=== PATIENT | female | born 1955 | race Caucasian/White ===

== ENCOUNTER 2016-12-04 21:12 | Emergency (ER) | payer OTHER ==
[~2016-12-04 21:12] MED LIST: PREDNISONE 20MG20 MG PO
[2016-12-04 21:23] VITALS: BP 140/71
[2016-12-04] MEDS ORDERED: NAPROXEN500 M2 PO (21:46)
[2016-12-04] MEDS ORDERED: CYCLOBENZAPRINE10 M1 PO (21:46)
--- NOTE | 2016-12-04 22:07 | ED NECK/BACK PAIN COMPLAINT ---
History of Present Illness General Chief Complaint: Neck/Upper Back Pain/Injury Stated Complaint: NECK PAIN Source: patient Exam Limitations: no limitations Vital Signs & Intake/Output Vital Signs & Intake/Output Vital Signs Date Time Temp Pulse Resp B/P Pulse O2 O2 Flow FiO2 Ox Delivery Rate 12/04 2123 79 20 140/71 99 ED Intake and Output 12/05 0000 12/04 1200 Intake Total Output Total Balance Patient 115 lb Weight Allergies Coded Allergies: NO KNOWN ALLERGIES (05/27/12) Reconcile Medications Cyclobenzaprine HCl 10 MG TABLET 1 TAB PO TID MUSCLE RELAXER (Reported) Meloxicam (Mobic) 15 MG TABLET 1 TAB PO DAILY PRN PAIN/INFLAMMATION Naproxen 500 MG TABLET 1 TAB PO BID PAIN (Reported) Tramadol HCl 50 MG TABLET 1 TAB PO BIDP PRN PAIN Triage Note: PER PT STIFF NECK ONLY ON RT X WEEKS, DENIES INJURY NO NEURO DEFICITS UNABLE TO TURN Triage Nurses Notes Reviewed? yes Onset: Gradual Duration: constant Timing: recent history Quality/Severity: moderate Location: paraspinous muscles Radiation: none Method of Injury: unknown HPI: Patient is a 61-year-old female who presents to emergency room with a two-week history of constant pain to the right lateral neck region. Pain is localized no radiating extremity paresthesia weakness or numbness. Patient denies any mechanism injury. Patient states that movement of her neck over her right shoulder makes worse. Patient is taking ibuprofen with relief of symptoms. Denies any fever chills headache. Denies any neck surgeries or significant past history of neck pain (CAREN MAC) Past History Travel History Traveled to [place] past 21 day No Medical History Any Pertinent Medical History? none Neurological: NONE EENT: NONE Cardiovascular: NONE Respiratory: NONE Gastrointestinal: NONE Hepatic: NONE Renal: NONE Musculoskeletal: NONE Psychiatric: NONE Surgical History Surgical History: non-contributory Psychosocial History What is your primary language Mauritian Tobacco Use: Current Daily Use Daily Tobacco Use Amount/Type: => 5 Cigarettes daily Family History Hx Contributory? No (CAREN MAC) Review of Systems Review of Systems Constitutional: Reports: no symptoms. Eyes: Reports: no symptoms. Ears, Nose, Throat, Mouth: Reports: no symptoms. Respiratory: Reports: no symptoms. Cardiovascular: Reports: no symptoms. Gastrointestinal/Abdominal: Reports: no symptoms. Musculoskeletal: Reports: see HPI, muscle pain, muscle stiffness, neck pain. Skin: Reports: no symptoms. Neurological/Psychological: Reports: no symptoms. All Other Systems: Reviewed and Negative (CAREN MAC) Physical Exam Physical Exam General Appearance: no apparent distress, alert, comfortable Neck: normal inspection, supple, limited range of motion, paraspinous muscle tender, no midline tenderness, RIGHT LATERAL PARACERVICAL MUSCULAR POINT TENDERNESS NOTED, Comments: Well-developed well-nourished no apparent distress. HEENT: Atraumatic, extraocular motion intact Neck: Supple, no lymphadenopathy Back: Nontender Respiratory: No respiratory distress Extremities: No edema, full range of motion Bilateral upper extremity myotomes dermatomes DTRs intact radial pulses +2 Neuro: Alert and oriented x3 Psych: Mood affect normal, normal memory normal judgment. (CAREN MAC) Progress Differential Diagnosis: AAA, aortic dissection, C spine injury, carotid dissection, cauda equina syn, herniated disc, myofascial strain, pyelo/UTI, sciatica, spinal cord inj, thoracic outlet syn, T/L spine injury, ureterolithiasis, TRANSVERSE MYELITIS DISCITIS SPINAL ABSCESS Plan of Care: Patient has no mechanism injury and has concerns of right lateral muscular neck pain. Patient was neurovascularly intact. Patient was advised to obtain primary care doctor for follow-up Patient upon discharge looks well no apparent distress and will comply with discharge instructions and had no questions (CAREN MAC) Departure Departure Disposition: HOME OR SELF CARE Condition: Stable Clinical Impression Primary Impression: Neck pain Referrals: PATIENT HAS NO PRIMARY CARE DR (PCP/Family) Additional Instructions: As discussed begin icing the area directly 20 minutes every 2 hours begin the prescription of MOBIC as directed for pain and inflammation and did not use at the same time such as ibuprofen and Aleve or Advil. Begin the prescription tramadol for breakthrough pain relief. YOU had been given a primary care doctor 's appointment the emergency room, please go to this point for follow up prescriptions are waiting at [facility] pharmacy. If symptoms worsen return to emergency room Departure Forms: Customer Survey General Discharge Information Prescriptions: Current Visit Scripts Meloxicam (Mobic) 1 TAB PO DAILY PRN PAIN/INFLAMMATION #20 TAB Tramadol HCl 1 TAB PO BIDP PRN PAIN #10 TAB (ACREN MAC) PA/RESTAURANT SHIFT LEADER Co-Sign Statement Statement: ED Attending supervision documentation- [] I saw and evaluated the patient. I have also reviewed all the pertinent lab results and diagnostic results. I agree with the findings and the plan of care as documented in the PA's/RESTAURANT SHIFT LEADER's documentation. [x] I have reviewed the ED Record and agree with the PA's/RESTAURANT SHIFT LEADER's documentation. [] Additions or exceptions (if any) to the PAs/RESTAURANT SHIFT LEADER's note and plan are summarized below: [] (GEE REICH,YONATHAN Daugherty)
[2016-12-04] MEDS ORDERED: TRAMADOL HCL50 M1 PO (22:31)
[2016-12-04] MEDS ORDERED: MOBIC15 M1 PO (22:31)
== END 2016-12-04 23:12 ==
LOC: ERH 21:12
DX: M54.2 Cervicalgia (principal)

== ENCOUNTER 2017-01-26 19:19 | Emergency (ER) | payer OTHER ==
[~2017-01-26] VITALS: Ht 152.4 cm; Wt 52.2 kg
[~2017-01-26 19:19] MED LIST changes: +CYCLOBENZAPRINE10 M1 PO; +MOBIC15 M1 PO; +NAPROXEN500 M2 PO; +TRAMADOL HCL50 M1 PO
--- NOTE | 2017-01-26 21:04 | ED MVC/FALL/TRAUMA COMPLAINT ---
History of Present Illness General Chief Complaint: Fall Stated Complaint: FELL 1WK AGO, RIGHT RIB AREA AND NECK PAIN Source: patient Exam Limitations: no limitations Vital Signs & Intake/Output Vital Signs & Intake/Output Vital Signs Date Time Temp Pulse Resp B/P Pulse O2 O2 Flow FiO2 Ox Delivery Rate 01/26 1942 97.9 75 18 173/75 99 Room Air Allergies Coded Allergies: NO KNOWN ALLERGIES (05/27/12) Reconcile Medications Cyclobenzaprine HCl 10 MG TABLET 1 TAB PO TID MUSCLE RELAXER (Reported) Cyclobenzaprine HCl 10 MG TABLET 1 TAB PO TID PRN MUSCLE RELAXANT MAY CAUSE DROWSINESS Diclofenac Sodium 75 MG TABLET.DR 1 TAB PO BID PRN PAIN/INFLAMMATION Meloxicam (Mobic) 15 MG TABLET 1 TAB PO DAILY PRN PAIN/INFLAMMATION Naproxen 500 MG TABLET 1 TAB PO BID PAIN (Reported) Tramadol HCl 50 MG TABLET 1 TAB PO BIDP PRN PAIN Triage Note: RECEIVED 61 YO FEMALE C/O RIGHT RIBCAGE AREA PAIN AND RIGHT NECK PAIN. PT FELL ONE WEEK AGO, LANDING ON HER RIGHT SIDE ON THE FLOOR. PAIN NOT GOING AWAY. NO DIFFICULY BREATHING, PAIN INCREASES WITH DEEP BREATHS Triage Nurses Notes Reviewed? yes HPI: Patient is a 61-year-old female presents complaining of right-sided neck pain and right hip pain status post fall. Patient reports that she tripped over her slippers approximately one week ago falling onto her right side. Pain is a pulling sensation in her neck is currently moderate, worsens with movement. Pain in her right ribs is moderate to severe. Patient has been taking ibuprofen with no improvement. Patient denies loss of consciousness, numbness, weakness, dyspnea. Past History Travel History Traveled to [place] past 21 day No Medical History Any Pertinent Medical History? none Neurological: NONE EENT: NONE Cardiovascular: NONE Respiratory: NONE Gastrointestinal: NONE Hepatic: NONE Renal: NONE Musculoskeletal: NONE Psychiatric: NONE Endocrine: NONE Blood Disorders: NONE Cancer(s): NONE Surgical History Surgical History: non-contributory Psychosocial History What is your primary language Czech Tobacco Use: Never used Family History Hx Contributory? No Review of Systems Review of Systems Constitutional: Denies: chills, fever. Eyes: Reports: no symptoms. Ears, Nose, Throat, Mouth: Reports: no symptoms. Respiratory: Denies: cough, short of breath. Cardiovascular: Denies: chest pain. Gastrointestinal/Abdominal: Denies: abdominal pain, vomiting. Genitourinary: Reports: no symptoms. Musculoskeletal: Reports: see HPI. Skin: Reports: no symptoms. Neurological/Psychological: Reports: no symptoms. Physical Exam Physical Exam General Appearance: well developed/nourished, alert, awake Head: atraumatic, normal appearance Eyes: Bilateral: normal appearance, PERRL, EOMI. Ears, Nose, Throat, Mouth: hearing grossly normal, moist mucous membrane Neck: normal inspection, supple, full range of motion, no midline tenderness, MILD RIGHT PARASPINAL TENDERNESS Respiratory: normal breath sounds, chest non-tender, no respiratory distress, lungs clear Cardiovascular: regular rate/rhythm Gastrointestinal: soft, non-tender Back: normal inspection, normal range of motion, no vertebral tenderness Extremities: normal range of motion Neurologic/Psych: no motor/sensory deficits, awake, alert, oriented x 3, normal gait, normal mood/affect, psychology professor II-XII nml as tested Skin: intact, normal color, warm/dry Core Measures ACS in differential dx? No Severe Sepsis Present: No Septic Shock Present: No Progress Differential Diagnosis: aoritic dissection, abd injury, C/T/L spine injury, ext injury, ICH, pelvis injury, pnemothorax, spinal cord injury Plan of Care: Orders Procedure Date/time Status XRY-RIBS UNILATERAL-RIGHT 01/26 2109 Active XRY-CERVICAL SPINE TRAUMA 01/26 2109 Active No acute neurologic abnormalities on exam. Results of x-rays discussed with patient. Appears stable for discharge. (ALCIDES HARRELL) Diagnostic Imaging: Viewed by Me: Radiology Read. Discussed w/RAD: Radiology Read. Radiology Impression: no acute abnormality Departure Departure Disposition: HOME OR SELF CARE Condition: Stable Clinical Impression Primary Impression: Contusion of rib on right side Qualifiers: Encounter type: initial encounter Qualified Code: S20.211A - Contusion of right front wall of thorax, initial encounter Secondary Impressions: Cervical strain Qualifiers: Encounter type: initial encounter Qualified Code: S16.1XXA - Strain of muscle, fascia and tendon at neck level, initial encounter Referrals: PATIENT HAS NO PRIMARY CARE DR (PCP/Family) Additional Instructions: Rest, apply heat to the affected areas for 20 minutes 4-5 times a day. Return to the emergency department if numbness, weakness, pain uncontrollable, difficulty breathing, worsening of symptoms. Departure Forms: Customer Survey General Discharge Information Prescriptions: Current Visit Scripts Cyclobenzaprine HCl 1 TAB PO TID PRN MUSCLE RELAXANT #20 TAB MAY CAUSE DROWSINESS Diclofenac Sodium 1 TAB PO BID PRN PAIN/INFLAMMATION #15 TAB
--- NOTE | 2017-01-26 22:03 | RADIOLOGY REPORT ---
EXAMINATION: XR CERVICAL SPINE CLINICAL INFORMATION: Fall one week ago. Neck pain. COMPARISON: None TECHNIQUE: 3 views of the cervical spine. FINDINGS: No acute fracture or subluxation. Minimal nuchal ligament calcification. Vertebral bodies and posterior elements are anatomically aligned. Vertebral body heights are maintained. Disc space narrowing at C5-C6 and C6-C7 with endplate osteophyte formation. The atlantoaxial joint is appropriately aligned. The prevertebral soft tissues are unremarkable. The lung apices are clear. IMPRESSION: No acute fracture or malalignment. Mild degenerative changes.
--- NOTE | 2017-01-26 22:04 | RADIOLOGY REPORT ---
EXAMINATION: XR RIBS, RIGHT CLINICAL INFORMATION: Fall with right rib pain COMPARISON: Chest radiograph 10/18/2014 TECHNIQUE: PA view of the chest with 3 views of the right ribs FINDINGS: The lungs are well expanded. There is no focal consolidation, edema, or effusion. No pneumothorax. The cardiomediastinal silhouette is within normal limits. Scoliotic curvature of the spine. Targeted right rib radiographs demonstrate no acute fracture or cortical disruption. Alignment is anatomic. IMPRESSION: Clear lungs. No displaced rib fractures.
[2017-01-26] MEDS ORDERED: DICLOFENAC SODI75 M2 PO (22:20)
[2017-01-26] MEDS ORDERED: CYCLOBENZAPRINE10 M1 PO (22:20)
[2017-01-26 22:25] VITALS: BP 160/70
== END 2017-01-26 22:27 ==
LOC: ERH 19:19
DX: S20.211A Contusion of right front wall of thorax, initial encounter (principal); S16.1XXA Strain of muscle, fascia and tendon at neck level, initial encounter; W18.09XA Striking against other object with subsequent fall, initial encounter; Y93.9 Activity, unspecified; Y92.9 Unspecified place or not applicable
CPT/HCPCS: 71100-RT; 72050

== ENCOUNTER 2017-03-17 15:59 | Emergency (ER) | payer OTHER ==
[~2017-03-17] VITALS: Ht 154.9 cm; Wt 54.4 kg
[~2017-03-17 15:59] MED LIST changes: +DICLOFENAC SODI75 M2 PO
[2017-03-17] MEDS ORDERED: ADVIL200 M1 PO (17:24)
--- NOTE | 2017-03-17 18:06 | ED GENERAL ADULT ---
History of Present Illness General Chief Complaint: Female Urogenital Problems Stated Complaint: ? UTI Source: patient Exam Limitations: no limitations Vital Signs & Intake/Output Vital Signs & Intake/Output Vital Signs Date Time Temp Pulse Resp B/P B/P Pulse O2 O2 Flow FiO2 Mean Ox Delivery Rate 03/17 1622 97.1 80 18 143/65 96 Room Air Allergies Coded Allergies: NO KNOWN ALLERGIES (05/27/12) Reconcile Medications Ibuprofen (Advil) 200 MG CAPSULE 2 TAB PO PRN PAIN (Reported) Triage Note: PT COMPLAINS OF L SIDE FLANK PAIN AND BLOOD IN URINE SINCE WEDNESDAY Triage Nurses Notes Reviewed? yes HPI: 61-year-old female with no significant past medical history presenting with left flank/left lower quadrant pain and gross hematuria 3 days. Patient is unsure pain first began in the back and toppled forward, versus beginning in the abdomen and traveling backward. Denies fevers, nausea, vomiting, diarrhea, dysuria, vaginal discharge/bleeding. Has tried ibuprofen without relief. (LAMBERT YOUNG PA-C) Past History Travel History Traveled to [place] past 21 day No Medical History Any Pertinent Medical History? see below for history Neurological: NONE EENT: NONE Cardiovascular: NONE Respiratory: NONE Gastrointestinal: NONE Hepatic: NONE Renal: NONE Musculoskeletal: NONE Psychiatric: NONE Endocrine: NONE Blood Disorders: NONE Cancer(s): NONE Surgical History Surgical History: non-contributory Psychosocial History What is your primary language Danish Tobacco Use: Current Daily Use Daily Tobacco Use Amount/Type: => 5 Cigarettes daily ETOH Use: denies use Illicit Drug Use: denies illicit drug use Family History Hx Contributory? No (LAMBERT YOUNG PA-C) Review of Systems Review of Systems Constitutional: Reports: no symptoms. Respiratory: Reports: no symptoms. Cardiovascular: Reports: no symptoms. GI: Reports: abdominal pain. Denies: constipation, diarrhea, nausea, bloody stool, vomiting. Genitourinary: Reports: hematuria. Denies: discharge, dysuria, frequency, urgency. Musculoskeletal: Reports: no symptoms. Skin: Reports: no symptoms. Neurological/Psychological: Reports: no symptoms. (LAMBERT YOUNG PA-C) Physical Exam Physical Exam General Appearance: well developed/nourished, no apparent distress Head: atraumatic Respiratory: normal breath sounds, lungs clear Cardiovascular: regular rate/rhythm, normal peripheral pulses Gastrointestinal: normal bowel sounds, soft, non-tender Back: No CVAT Core Measures ACS in differential dx? No CVA/TIA Diagnosis: No Severe Sepsis Present: No Septic Shock Present: No (HECTOR HYATT,LAMBERT) Progress Differential Diagnoses I considered the following diagnoses in my evaluation of the patient: [ Nephrolithiasis versus ureterolithiasis versus UTI versus pyelonephritis versus renal cell carcinoma versus bladder carcinoma] Plan of Care: Orders Procedure Date/time Status CBC WITHOUT DIFFERENTIAL 03/17 1751 Complete BASIC METABOLIC PANEL 03/17 1751 Complete URINALYSIS 03/17 162 Complete Laboratory Tests 03/17/17 1800: Anion Gap 9, Estimated GFR > 60, BUN/Creatinine Ratio 30.0 H, Glucose 81, Calcium 9.6, CBC w Diff NO MAN DIFF REQ, RBC 4.22, MCV 94.0, MCH 31.3 H, RDW 13.9, MPV 8.3, Gran % 62.3, Lymphocytes % 27.9, Monocytes % 7.2, Eosinophils % 2.3, Basophils % 0.3, Absolute Granulocytes 5.5, Absolute Lymphocytes 2.5, Absolute Monocytes 0.6, Absolute Eosinophils 0.2, Absolute Basophils 0, PUBS MCHC 33.3 03/17/17 1651: Urinalysis LIGHT H, Urine Color YEL, Urine Clarity HAZY H, Urine pH 6.0, Ur Specific Mcrae 1.010, Urine Protein NEG, Urine Ketones NEG, Urine Nitrite NEG, Urine Bilirubin NEG, Urine Urobilinogen 0.2, Ur Leukocyte Esterase TRACE H, Ur Microscopic SEDIMENT EXAMINED, Urine RBC >75 H, Urine WBC 3-5 H, Ur Epithelial Cells FEW, Urine Bacteria RARE H, Urine Mucus FEW, Urine Hemoglobin LARGE H, Urine Glucose NEG CT scan shows 3 mm stone at the ureteropelvic junction with mild hydronephrosis. Urine remarkable for hematuria. No elevated white blood cell count, normal kidney function. Patient with good pain improvement after Toradol and IV fluids. Instructed to use ibuprofen as needed at home, given expectant management. (HECTOR HYATT,LAMBERT) Initial ED EKG: none (LAMBERT YOUNG PA-C) Departure Departure Disposition: HOME OR SELF CARE Condition: Stable Clinical Impression Primary Impression: Ureterolithiasis Referrals: PATIENT HAS NO PRIMARY CARE DR (PCP/Family) Additional Instructions: Use 800 mg of ibuprofen every 8 hours as needed for pain. Maintain adequate fluid intake. Follow up with her primary care provider for reevaluation in 24- 48 hours. Attention ED for any new or worsening symptoms. Departure Forms: Customer Survey General Discharge Information (HECTOR HYATT,LAMBERT) PA/FELT HAT POUNCING OPERATOR HAND Co-Sign Statement Statement: ED Attending supervision documentation- [] I saw and evaluated the patient. I have also reviewed all the pertinent lab results and diagnostic results. I agree with the findings and the plan of care as documented in the PA's/FELT HAT POUNCING OPERATOR HAND's documentation. [X] I have reviewed the ED Record and agree with the PA's/FELT HAT POUNCING OPERATOR HAND's documentation. [] Additions or exceptions (if any) to the PAs/FELT HAT POUNCING OPERATOR HAND's note and plan are summarized below: [] (JOHN CARDONA DO) Critical Care Note Critical Care Note Critical Care Time: non-applicable (LAMBERT YOUNG PA-C)
[2017-03-17 18:26] LABS: ABSOLUTE BASOPHIL COUNT 0 /CUMM (0.0-0.2); ABSOLUTE EOSINOPHIL COUNT 0.2 /CUMM (0.0-0.7); ABSOLUTE GRANULOCYTE CT 5.5 /CUMM (1.4-6.5); ABSOLUTE LYMPH COUNT 2.5 /CUMM (1.2-3.4); ABSOLUTE MONOCYTE COUNT 0.6 /CUMM (0.10-0.60); BASOPHIL % 0.3 % (0.0-2.0); EOSINOPHIL % 2.3 % (0-5); GRANULOCYTE % 62.3 % (42.2-75.2); HEMATOCRIT 39.6 % (37-47); MEAN CORPUSCULAR HGB 31.3 PG (27.0-31.0); MEAN CORPUSCULAR HGB CONC 33.3 G/DL (33.0-37.0); MEAN PLATELET VOLUME 8.3 FL (7.4-10.4); PLATELET COUNT 248 /CUMM (130-400); RBC DISTRIBUTION WIDTH 13.9 % (11.5-14.5); RED BLOOD CELL CT 4.22 /CUMM (4.20-5.40); WHITE BLOOD CELL COUNT 8.8 /CUMM (4.8-10.8)
--- NOTE | 2017-03-17 19:42 | CT SCAN REPORT ---
EXAMINATION: CT ABDOMEN AND PELVIS WITHOUT CONTRAST CLINICAL INFORMATION: Left flank pain with hematuria. Evaluate for stone. COMPARISON: None TECHNIQUE: Multidetector volumetric imaging was performed from the superior aspect of the liver through the pubic symphysis. Sagittal and coronal reformatted images were obtained on the technologist's workstation. DLP: 226 mGy-cm FINDINGS: The imaged portions of the lungs are relatively clear. Mild emphysematous changes are noted. There are no pleural effusions. There is minimal linear scarring versus subsegmental atelectasis in the lingula. Bilateral renal calculi are noted, the largest stone measures only 3 mm in diameter. There is mild left-sided hydronephrosis due to an obstructing 3 mm calculus at the left ureteropelvic junction. The bladder is distended without wall thickening or retained calculi. The unenhanced liver, spleen, adrenal glands, and pancreas appear grossly normal. There is sludge layering within the contracted gallbladder. Mild to moderate atherosclerotic wall calcification noted in the abdominal aorta. There is no bulky retroperitoneal adenopathy. No free air or free fluid is seen. There is no evidence of a bowel obstruction. No obvious pericolonic inflammatory changes are identified. The appendix is normal. The uterus appears normal. There is a [id number]-fyhebavn leftward curvature of the midlumbar spine with significant endplate sclerosis, osteophyte formation, and disc space narrowing at the L2-L3 and L3-L4 levels. No compression fractures or subluxations are identified. No acute osseous abnormality is seen. IMPRESSION: Mild left-sided hydronephrosis due to an obstructing 3 mm calculus at the ureteropelvic junction. Bilateral nephrolithiasis. Biliary sludge within the contracted gallbladder. Moderate to severe spondylosis at L2-L3 and L3-L4 with a [id number] leftward degenerative curvature of the lumbar spine.
[2017-03-17 20:13] VITALS: BP 141/63
== END 2017-03-17 20:14 ==
LOC: ERH 15:59
PROVIDERS: Physician Assistant
DX: N20.1 Calculus of ureter (principal)
CPT/HCPCS: 74176; 81001; 96374; J1885

== ENCOUNTER 2017-03-28 14:21 | Emergency (ER) | payer OTHER ==
[~2017-03-28] VITALS: Ht 154.9 cm; Wt 54.4 kg
[~2017-03-28 14:21] MED LIST changes: +ADVIL200 M1 PO
[2017-03-28 15:30] VITALS: BP 126/79
--- NOTE | 2017-03-28 16:37 | ED GI/GU/ABDOMINAL COMPLAINT ---
History of Present Illness General Chief Complaint: Female Urogenital Problems Stated Complaint: KIDNEY STONE PAIN, SEEN HERE 03/17 FOR SAME Source: patient Exam Limitations: no limitations Vital Signs & Intake/Output Vital Signs & Intake/Output Vital Signs Date Time Temp Pulse Resp B/P B/P Pulse O2 O2 Flow FiO2 Mean Ox Delivery Rate 03/28 1852 Room Air 03/28 1530 98.6 88 14 126/79 99 Room Air 03/28 1450 98.2 86 20 135/77 99 Room Air Allergies Coded Allergies: NO KNOWN ALLERGIES (05/27/12) Reconcile Medications Ibuprofen (Advil) 200 MG CAPSULE 2 TAB PO PRN PAIN (Reported) Simethicone 80 MG TAB.CHEW 80 MG PO TID BLOATING Triage Note: C/O WORSENING ABDOMINAL, BACK PAIN WITH STOMACH DISTENTION. X 2 WEEKS, SEEN HERE ON 03/17, DXD WITH KIDNEY STONE. ALSO C/O DECREASED APPETITE AND DIARRHEA. Triage Nurses Notes Reviewed? yes ? N Is pt currently ? No HPI: 61F WITH BILATERAL KIDNEY STONES 1 WEEK AGO RETURNS WITH LOWER ABDOMINAL BLOATING FOR 4 DAYS. DENIES ABDOMINAL PAIN, DIARRHEA, CONSTIPATION, CHANGE IN BOWEL HABITS, DYSURIA, HEMATURIA. ONLY COMPLAINT IS ABDOMINAL BLOATING AT THE END OF THE DAY. ALSO REPORTS LOWER BACK PAIN BUT THIS IS CHRONIC AND UNCHANGED. SHE HAS NO OTHER COMPLAINTS, NO NEUROLOGICAL SYMPTOMS, DENIES FEVER, CHILLS, N/V , AND APPEARS VERY COMFORTABLE AND PLEASANT. Past History Travel History Traveled to [place] past 21 day No Medical History Any Pertinent Medical History? see below for history Neurological: NONE EENT: NONE Cardiovascular: NONE Respiratory: NONE Gastrointestinal: NONE Hepatic: NONE Renal: NONE Musculoskeletal: NONE Psychiatric: NONE Endocrine: NONE Blood Disorders: NONE Cancer(s): NONE Surgical History Surgical History: non-contributory Psychosocial History What is your primary language [place] Island[place] Tobacco Use: Current Daily Use Daily Tobacco Use Amount/Type: => 5 Cigarettes daily ETOH Use: denies use Family History Hx Contributory? No Review of Systems Review of Systems Constitutional: Reports: no symptoms. EENTM: Reports: no symptoms. Respiratory: Reports: no symptoms. Cardiovascular: Reports: no symptoms. GI: Reports: see HPI. Genitourinary: Reports: see HPI. Musculoskeletal: Reports: see HPI. Skin: Reports: no symptoms. Neurological/Psychological: Reports: no symptoms. Hematologic/Endocrine: Reports: no symptoms. Immunologic/Allergic: Reports: no symptoms. All Other Systems: Reviewed and Negative Physical Exam Physical Exam General Appearance: well developed/nourished, no apparent distress, alert, awake Head: normal appearance Eyes: Bilateral: normal appearance. Ears, Nose, Throat, Mouth: moist mucous membrane Neck: normal inspection Respiratory: normal breath sounds, no respiratory distress Cardiovascular: regular rate/rhythm Gastrointestinal: normal bowel sounds, soft, non-tender, no organomegaly Rectal: deferred Back: normal inspection, normal range of motion, no vertebral tenderness Extremities: normal range of motion Neurologic/Psych: no motor/sensory deficits Core Measures ACS in differential dx? No Severe Sepsis Present: No Septic Shock Present: No Progress Differential Diagnosis: AAA, AMI, appendicitis, biliary colic, bowel obstruction , colon cancer, cholecystitis, diverticulitis, ectopic , endometritis, esophageal varices, gastritis, hepatitis, hernia, hemorrhoids, ischemic bowel, inflamm bowel dis, intrauterine , kidney stone, Julieta-Daiana tear, ovarian cyst, ovarian torsion, pancreatitis, PID/cervicitis, peptic ulcer, PUD/ GERD, perforated viscous, SBO, threatened AB, UTI/pyelo Plan of Care: Orders Procedure Date/time Status BASIC ELECTROLYTES PLUS BUN&CR 03/28 1634 Complete Laboratory Tests 03/28/17 1644: Anion Gap 8, Estimated GFR > 60, BUN/Creatinine Ratio 24.0 NORMAL RENAL FUNCTION. NO EVIDENCE OF NEPHROLITHIASIS OR GI ABNORMALITY. WILL DISCHARGE PATIENT HOME ON SIMETHICONE WITH PCP FOLLOW UP. (CHANTAL REICH,INDY) Initial ED EKG: none Departure Departure Time of Disposition: 1716 Disposition: HOME OR SELF CARE Condition: Stable Clinical Impression Primary Impression: Abdominal bloating Secondary Impressions: Chronic back pain Referrals: JOSEY REECE DO PATIENT HAS NO PRIMARY CARE DR (PCP/Family) Departure Forms: Customer Survey General Discharge Information Prescriptions: Current Visit Scripts Simethicone 80 MG PO TID #30 TAB
[2017-03-28] MEDS ORDERED: SIMETHICONE80 M1 PO (17:19)
== END 2017-03-28 18:53 ==
LOC: ERH 14:21
DX: R14.0 Abdominal distension (gaseous) (principal); G89.29 Other chronic pain; M54.5 Low back pain
CPT/HCPCS: 82436